=== PATIENT | male | born 1950 | race Caucasian/White ===

== ENCOUNTER → 2018-05-04 | Outpatient (CLI) | payer MEDICARE, OTHER ==
[~2018-05-04] MED LIST: AMBIEN 5 MG TABL5 M1 PO; DIPHENHIST50 MG PO
--- NOTE | 2018-05-14 14:26 | CON ---
[address] [address] CONSULTATION Name: WILFRED RIVERA Room: [facility]#: [id number] Admission: 05/04/18 Attend Phys: Eber Melendez MD Discharge: Date of : 50 Report #: [id number] THIS REPORT FOR: //name// CC: Eber William MD DATE OF CONSULT: 05/04/2018 [facility] REFERRING PHYSICIANS: Include Dr. Hans Barros, also Surendra William MD. PRIMARY SITE AND HISTOPATHOLOGY: The patient has findings consistent with a [id number] prostate cancer, so he has at least a stage IIB prostate cancer with his PSA being 14.1 on 01/31/2018. HISTORY OF PRESENT ILLNESS: The patient is a 67-year-old man who has had a rising PSA. Otherwise, in terms of genitourinary symptoms he appears asymptomatic. His PSA was slightly elevated at 5.7 on 04/10/2014. Dr. Barros continued observing the patient and by 01/31/2018 the patient's PSA was 14.1. The patient was referred to Dr. William and Dr. William went on to perform a biopsy of the prostate on 02/24/2018. Five of the 12 cores were involved with prostate cancer. The [place] score was 4+3 equal 7 and the prostate cancer was mostly involving the left lobe. The patient said that his urologist, Dr. William, discussed the options of observation, surgery, radiation therapy, cryotherapy and the patient was leaning towards radiation therapy, so he was referred to me since our radiation therapy center is closer to the patient's home. Hence, I am seeing the patient today for a consultation. PAST MEDICAL HISTORY AND PAST SURGICAL HISTORY: Includes insomnia and he takes zolpidem as needed. MEDICATIONS: Benadryl, zolpidem, and he also takes Flonase nasal spray for allergies. ALLERGIES: HE HAS AN ADVERSE REACTION TO HYDROCODONE, WHERE HE GETS HICCUPS. FAMILY HISTORY: Father had prostate cancer and colon cancer. SOCIAL HISTORY: The patient is retired. He is . His of cancer about 5 years ago. She to have an adenocarcinoma that involved her abdomen. The patient has a son and a daughter. Ethanol: [place] [address] CONSULTATION Name: WILFRED RIVERA Josie Room: [facility]#: [id number] Admission: 05/04/18 Attend Phys: Eber Melendez MD Discharge: Date of : 50 Report #: [id number] drink alcohol containing drinks. Cigarettes: the patient does not smoke cigarettes. REVIEW OF SYSTEMS: GENERAL: The patient denied having any fevers or chills. SKIN: The patient denied having color changes or itching. LYMPH NODES: The patient denied having any large or painful glands in the neck. ENDOCRINE: The patient denied having any hot or cold intolerance. HEMATOLOGY/IMMUNOLOGY: The patient denied having any recent bleeding. MUSCULOSKELETAL: The patient denied having any arthritis. HEAD AND NECK: The patient denied having any migraine headaches. RESPIRATORY: The patient denied having any shortness of breath. CARDIOVASCULAR: The patient denied having any palpitations. GASTROINTESTINAL: The patient denied having any vomiting. NEUROLOGIC: The patient denied having any focal weakness. PHYSICAL EXAMINATION: VITALS: Ht 6 feet 0 inch, Wt 222.6 pounds BP 129/89 P 70 R 20 O2 sat 97% GENERAL/PSYCHIATRIC: The patient was alert, oriented, and in no acute distress. EYES: Pupils were equal, round, reactive to light and accommodation. Extraocular movement were intact. HEAD, EARS, NOSE AND THROAT: Mouth had no visible lesions. HEART: Had a regular rate and rhythm without murmur. LUNGS: were clear to auscultation. ABDOMEN: Not tender. Spleen was not palpable. Liver was at the costal margin. EXTREMITIES: Had no clubbing, cyanosis or edema. NEUROLOGIC: Cranial nerves II to XII were intact. Sensation was intact. RECTAL: The patient had some mild firmness in the left lobe of the prostate. The patient was guaiac negative using [employer] cards from lot [id number] that expires 01/2020 using the guaiac developer from Lot [id number] that expires in 08/2020. ASSESSMENT AND PLAN: The patient has findings consistent with a [id number] early stage IIB prostate cancer. The patient was told that his treatment options include observation, prostatectomy, radiation therapy with or without androgen suppression, versus androgen suppression alone. In terms of radiation therapy, there have been studies such as the one where Dr. Brooks was one of the authors where they randomized patients with intermediate risk prostate cancer between radiation therapy alone or radiation therapy and 6 months of androgen suppression. The results of this were published in 2000 in the Journal of [employer]. It was entitled "6-month androgen suppression post-radiation therapy versus radiation therapy alone for patients with clinically localized prostate cancer: a randomized control trial." In that study the 5-year survival rate was 88% with combined [place] [address] CONSULTATION Name: WILFRED RIVERA Room: [facility]#: [id number] Admission: 05/04/18 Attend Phys: Eber Melendez MD Discharge: Date of : 50 Report #: [id number] 78% with radiation therapy alone. The rates of survival free of salvage androgen suppression at 5 years were 82% in the combined modality group versus 57% with radiation therapy alone. Since that time, the doses of radiation therapy have increased with the use of intensity modulated radiation therapy and in the study from Dr. Macdonald from [facility], they found that with the higher doses of radiation therapy, that the 8-year biochemical clinical freedom from failure rate for intermediate risk prostate cancer patients with radiation therapy alone was 94%. So the risks, benefits, and logistics of radiation therapy were explained to the patient in detail. He was not interested in androgen suppression. So, the patient gave his witnessed, informed consent to proceed with radiation therapy. Thank you very much for this consult. <ELECTRONICALLY SIGNED> By: Eber Melendez MD 05/14/18 [id number] Melendez MD /nt
== END ==
LOC: M.RTH 04:01
DX: Z51.0 Encounter for antineoplastic radiation therapy (principal); R97.21 Rising PSA following treatment for malignant neoplasm of prostate; C61 Malignant neoplasm of prostate

== ENCOUNTER → 2018-05-12 | Outpatient (CLI) | payer MEDICARE, OTHER ==
[2018-05-12 15:47] LABS: ABSOLUTE EOSINOPHILS 0.1 thou/uL (0.0-0.7); ABSOLUTE LYMPHOCYTES 1.4 thou/uL (0.8-5.3); ABSOLUTE MONOCYTES 0.5 thou/uL (0.0-1.2); ABSOLUTE NEUTROPHILS 5.4 thou/uL (1.6-8.1); BASOPHILS 0.5 %; EOSINOPHILS 1.3 %; HEMATOCRIT 41.7 % (42.0-52.0); HEMOGLOBIN 14.5 gm/dL (14.0-18.0); LYMPHOCYTES 18.4 %; MCH 32.7 pg (26.0-34.0); MCHC 34.9 g/dL (28.0-37.0); MCV 93.8 fL (80.0-100.0); MONOCYTES 6.7 %; MPV 8.7 fl. (7.2-11.1); NUCLEATED RBCS 0 /100WBC; PLATELET COUNT* 213 thou/uL (150-400); POLYS 73.1 %; RBC 4.44 mil/uL (4.50-6.00); RDW-CV 13.7 % (10.5-14.5); WBC 7.4 thou/uL (4.0-11.0)
[2018-05-12 15:55] LABS: INR 1.1; PROTIME 10.4 Seconds (9.20-11.50)
[2018-05-12 16:05] LABS: ALBUMIN 4.1 g/dL (3.4-5.0); CALCIUM 9.1 mg/dL (8.5-10.1); CREATININE 1.2 mg/dL (0.6-1.3); TOTAL BILIRUBIN 0.4 mg/dL (<0.1-1.0); TOTAL PROTEIN 7.6 g/dL (6.4-8.2)
== END ==
LOC: M.LAB 15:15
PROVIDERS: Radiology Radiation Oncology
DX: C61 Malignant neoplasm of prostate (principal); D49.9 Neoplasm of unspecified behavior of unspecified site

== ENCOUNTER → 2018-05-17 | Outpatient (CLI) | payer MEDICARE, OTHER ==
[~2018-05-17] VITALS: Ht 182.9 cm; Wt 100.7 kg
[2018-05-17 07:56] VITALS: BP 134/86
[2018-05-17 09:47] VITALS: BP 114/58
[2018-05-17 09:54] VITALS: BP 107/56
[2018-05-17 09:57] VITALS: BP 107/55
[2018-05-17 10:12] VITALS: BP 104/64
== END | disposition home or self-care (01) ==
LOC: M.ULTRA 05-12 08:30
DX: C61 Malignant neoplasm of prostate (principal); Z88.8 Allergy status to other drugs, medicaments and biological substances; Z80.42 Family history of malignant neoplasm of prostate; Z79.899 Other long term (current) drug therapy